=== PATIENT | female | born 1995 | race African-American/Black ===

== ENCOUNTER 2018-11-23 06:09 | Emergency (ER) | payer OTHER ==
[2018-11-23 06:17] VITALS: BP 124/71
--- NOTE | 2018-11-23 06:56 | EDM.PDOC ---
ED HPI GENERAL MEDICAL PROBLEM - General Chief Complaint: ENT Problem Stated Complaint: sore throat Time Seen by Provider: 11/23/18 06:20 Source of Information: Reports: Patient History Limitations: Reports: No Limitations - History of Present Illness INITIAL COMMENTS - FREE TEXT/NARRATIVE: Patient is a 23-year-old who was seen in the emergency room with chief complaint of not feeling well generalized malaise and aches Onset: Gradual Duration: Hour(s): (24 hours), Getting Worse Location: Reports: Face, Neck (Tenderness) Quality: Reports: Ache, Pressure Severity: Moderate Improves with: Reports: Cold Therapy Worsens with: Reports: None Associated Symptoms: Reports: cough w sputum (Clear), Nausea/Vomiting Treatments [employer]: Reports: Cold Therapy, NSAIDS Throat Pain Score (Numeric/FACES): 7 - Related Data Allergies Allergy/AdvReac Type Severity Reaction Status Date / Time No Known Allergies Allergy Verified 11/23/18 06:16 Home Meds: Home Meds . [No Known Home Meds] 11/23/18 [History] Past Medical History - Past Health History Medical/Surgical History: Denies Medical/Surgical History Social & Family History - Tobacco Use Smoking Status *Q: Never Smoker Second Hand Smoke Exposure: No - Recreational Drug Use Recreational Drug Use: No ED ROS ENT - Review of Systems Review Of Systems: ROS reveals no pertinent complaints other than HPI. ED EXAM, ENT - Physical Exam Exam: See Below Exam Limited By: No Limitations General Appearance: Alert, WD/WN, No Apparent Distress Ears: Normal External Exam, Normal Canal, Hearing Grossly Normal, Normal TMs Nose: Normal Inspection, No Blood, Clear Rhinorrhea Mouth/Throat: Normal Inspection, Normal Gums, Normal Lips, Normal Oropharynx, Normal Teeth, Throat Pain Head: Atraumatic, Normocephalic Neck: Supple, Tender Lateral Respiratory/Chest: No Respiratory Distress, Lungs Clear, Normal Breath Sounds, No Accessory Muscle Use, Chest Non-Tender Cardiovascular: Normal Peripheral Pulses, Regular Rate, Rhythm, No Edema, No Gallop, No JVD, No Murmur, No Rub GI/Abdominal: Normal Bowel Sounds, Soft, Non-Tender, No Organomegaly, No Distention, No Abnormal Bruit, No Mass (Female) Exam: Normal External Exam, Normal Speculum Exam, Normal Bimanual Exam Rectal (Female) Exam: Deferred Back: Normal Inspection, Full Range of Motion Extremities: Normal Inspection, Normal Range of Motion, Non-Tender, No Pedal Edema, Normal Capillary Refill Neurological: Alert, Oriented, CN II-XII Intact, Normal Cognition, Normal Gait, Normal Reflexes, No Motor/Sensory Deficits Psychiatric: Normal Affect, Normal Mood Skin: Warm, Dry, Intact, Normal Color, No Rash Lymphatic: No Adenopathy Course - Vital Signs Last Recorded V/S: Last Vital Signs Temp 99.2 F 11/23/18 06:09 Pulse 86 11/23/18 06:09 Resp 20 11/23/18 06:09 BP 124/71 11/23/18 06:09 Pulse Ox 100 11/23/18 06:09 - Orders/Labs/Meds Orders: Active Orders 24 hr Category Date Time Status CULTURE STREP A CONFIRMATION [] Stat Lab 11/23/18 07:00 Results STREP SCRN A RAPID W CULT CONF [] Stat Lab 11/23/18 06:52 Ordered Labs: Laboratory Tests 11/23/18 Range/Units 07:00 WBC 7.8 (4.0-10.2) K/uL RBC 4.21 (3.77-5.09) M/uL Hgb 13.3 (11.7-15.5) g/dL Hct 39.1 (34.0-46.0) % MCV 92.9 (84.0-98.0) fL MCH 31.6 (28.2-33.3) pg MCHC 34.0 (31.7-36.0) g/dL RDW 13.0 (11.2-14.1) % Plt Count 220 (150-350) K/uL Neut % (Auto) 75.7 (45.0-80.0) % Lymph % (Auto) 10.3 (10.0-50.0) % [place] % (Auto) 13.2 (2.0-14.0) % Eos % (Auto) 0.4 (0.0-5.0) % Baso % (Auto) 0.4 (0.0-2.0) % Neut # (Auto) 5.90 (1.40-7.00) K/uL Lymph # (Auto) 0.80 (0.50-3.50) K/uL [place] # (Auto) 1.03 H (0.00-1.00) K/uL Eos # (Auto) 0.03 (0.00-0.50) K/uL Baso # (Auto) 0.03 (0.00-0.20) K/uL Departure - Departure Time of Disposition: 07:22 Disposition: Home, Self-Care 01 Condition: Fair Clinical Impression: Viral upper respiratory tract infection - Discharge Information *PRESCRIPTION DRUG MONITORING PROGRAM REVIEWED*: No *COPY OF PRESCRIPTION DRUG MONITORING REPORT IN PATIENT [place]: No Instructions: Upper Respiratory Infection, Adult, [id number] Forms: ED Department Discharge Care Plan Goals: Patient should stay home for the next 2 days return to work on Thursday if not better follow-up with primary at this time there is no indications for antibiotic therapy just supportive - My Orders Last 24 Hours: My Active Orders 11/23/18 06:52 STREP SCRN A RAPID W CULT CONF [RM] Stat 11/23/18 07:00 CULTURE STREP A CONFIRMATION [RM] Stat - Assessment/Plan Last 24 Hours: My Active Orders 11/23/18 06:52 STREP SCRN A RAPID W CULT CONF [RM] Stat 11/23/18 07:00 CULTURE STREP A CONFIRMATION [RM] Stat
== END 2018-11-23 07:47 | disposition home or self-care (01) ==
LOC: LL.ED 06:09
DX: J06.9 Acute upper respiratory infection, unspecified (principal)
CPT/HCPCS: 36415; 85025; 87081; 87430; 87804; 99283